=== PATIENT | male | born 1975 | race Caucasian/White ===

== ENCOUNTER → 2016-06-10 | Outpatient (CLI) | payer OTHER ==
--- NOTE | 2016-06-11 03:24 | REP ---
Clinical: Enlarges left francis scrotum/testicle. Technique: Real time maria scale and color Doppler evaluation using linear high frequency transducer. Findings: The bilateral testicles and right epididymis are normal in contour, size, echogenicity without mass lesion, infectious/inflammatory process, or torsion. Within the left francis scrotum is a large fluid collection with debris measuring greater than 6 cm which either represents large epididymal head cyst/spermatocele versus loculated hydrocele. Small relatively insignificant right hydrocele noted. No varicoceles. Right testicle measures 3.5 x 2.0 x 2.5 cm. Left testicle measures 4.0 x 2.3 x 2.0 cm. Impression: 1. A 6 cm of fluid collection in the left francis scrotum. Differential diagnosis includes epididymal cyst/spermatocele and loculated hydrocele. Signed by Ryan Edwards MD 06/11/2016 03:15 A
== END ==
LOC: M RAD 10:46
PROVIDERS: ATTEND Thoracic Surgery (Cardiothoracic Vascular Surgery)
DX: N50.89 Other specified disorders of the male genital organs (principal)